=== PATIENT | female | born 1935 | race Caucasian/White ===

== ENCOUNTER 2020-09-25 04:23 | Inpatient (IN) | payer OTHER ==
[~2020-09-25] VITALS: Ht 170.2 cm; Wt 103.0 kg
[2020-09-25] MEDS ORDERED: ACETAMINOPHEN 650 MG RECT SUPP PR ONE ×2 (04:54→05:15)
[2020-09-25] MEDS ORDERED: ACETAMINOPHEN 325 MG TAB PO ONE (05:00)
[2020-09-25 05:47] LABS: Urine Bacteria MANY /hpf (None Seen); Urine Blood 2+ /uL (Negative); Urine Budding Yeast MANY /hpf (None Seen); Urine WBC 321 /hpf (0 - 5); Urine WBC Clumps PRESENT /hpf (None Seen)
[2020-09-25 05:49] LABS: Urine Specific Gravity 1.012 (1.001-1.035)
[2020-09-25 06:02] LABS: Amphetamine Screen, Urine NEGATIVE (NEGATIVE); Barbiturate Scree,Urine NEGATIVE (NEGATIVE); Benzodiazephine Screen, Urine NEGATIVE (NEGATIVE); Cannabinoid Screen, Urine NEGATIVE (NEGATIVE); Cocaine Screen, Urine NEGATIVE (NEGATIVE); Opiate Scree,Urine POSITIVE (NEGATIVE); Phencyclidine Screen, Urine NEGATIVE (NEGATIVE)
[2020-09-25] MEDS ORDERED: VANCOMYCIN 1GM/250ML 250 ML IV ONE (06:30)
[2020-09-25] MEDS ORDERED: PIPERACILLIN-TAZOB 3.375GM 100 ML IV ONE (06:30)
[2020-09-25] MEDS ORDERED: SODIUM CHLORIDE 0.9% 1,000 ML IV ONE (06:30)
[2020-09-25] MEDS ORDERED: FAMOTIDINE (10MG/ML) 2ML VL IV ONE (06:45)
[2020-09-25] MEDS ORDERED: FAMOTIDINE INJECTION 40 MG in SODIUM CHL 0.9% 100 ML IV ONE (06:45)
[2020-09-25 07:17] LABS: Hematocrit 31.9 % (36.0-46.0); Hemoglobin 10.4 g/dL (12.2-16.2); Mean Corpuscular Hemoglobin 28.8 pg (28.0-32.0); Mean Corpuscular Hgb Conc. 32.5 g/dL (32.0-36.0); Mean Corpuscular Volume 88.4 fL (80.0-100.0); Red Cell Distribution Width 16.4 % (11.8-14.3); White Blood Cell 14.7 10^3/uL (4.4-10.8)
[2020-09-25 07:39] LABS: Basophils % (manual) 0 (0.0-2.0); Blast Cells 0; Eosinophils % (manual) 0 (0-7); Myelocytes % 0; Promyelocytes % 0; Reactive Lymphocytes 0
[2020-09-25 07:42] LABS: Chloride 99 mmol/L (98-107); Potassium 4.6 mmol/L (3.5-5.1); Sodium 133 mmol/L (136-145)
[2020-09-25 07:43] LABS: Acetaminophen 5.3 ug/mL (10-30); Salicylate < 1.7 mg/dL (2.8-20.0)
[2020-09-25 07:52] LABS: Alanine Aminotransferase 34 U/L (13-56); Albumin 2.4 g/dL (3.4-5.0); Alkaline Phosphatase 53 U/L (45-117); Anion Gap 7 (5-15); Aspartate Aminotransferase 125 U/L (15-37); BUN/Creatinine Ratio 22.2; Bilirubin, Total 0.8 mg/dL (0.2-1.0); Blood Alcohol < 3.0 mg/dL (0-5); Blood Urea Nitrogen 51 mg/dL (7-18); Calcium 8.2 mg/dL (8.5-10.1); Carbon Dioxide 27 mmol/L (21-32); GFR African American 26 mL/min; GFR Non-African American 21 mL/min; Glucose 179 mg/dL (74-106); Total Protein 6.6 g/dL (6.4-8.2)
[2020-09-25 08:17] LABS: Band Neutrophils % (manual) 16; Lymphocytes % (manual) 4 (10.0-50.0); Metamyelocytes % 1; Monocytes % (manual) 10 (0-12)
[2020-09-25 10:51] LABS: INR 1.02 (0.9-1.15); Partial Thromboplastin Time 28.8 sec (23.0-31.2)
[2020-09-25] MEDS ORDERED: MORPHINE SULFATE INJECTION 2 MG/ML SYRG IV PRN (13:15)
[2020-09-25] MEDS ORDERED: ACETAMINOPHEN 500 MG TAB PO PRN (13:15)
[2020-09-25] MEDS ORDERED: NITROGLYCERIN 0.4 MG SL TAB SL PRN (13:15)
[2020-09-25] MEDS ORDERED: FOLIC ACID 1 MG, MULTIPLE VITAMIN 10 ML, MAGNESIUM SULF SDV 50% 8 MEQ, THIAMINE INJ 100... INJ SCH ×5 (13:15)
[2020-09-25 14:25] LABS: Lactate Dehydrogenase 441 U/L (84-246)
[2020-09-25 14:30] LABS: CRP High Sensitivity > 19.0 mg/dL (< 0.3)
[2020-09-25] MEDS: CHOLECALCIFEROL (VITD3) 2,000 UNIT CAP/TAB PO SCH (14:37)
[2020-09-25] MEDS: SODIUM CHLORIDE 0.9% 1,000 ML IV SCH ×2 (14:37→23:15)
[2020-09-25] MEDS: metroNIDAZOLE 500MG/100ML 100 ML IV SCH ×2 (14:37→21:51)
[2020-09-25] MEDS: ASCORBIC ACID 1,000 MG TAB PO SCH (14:37)
[2020-09-25] MEDS: ENOXAPARIN SOD 40 MG/0.4 ML SYRINGE SC SCH (14:37)
[2020-09-25] MEDS: PIPERACILLIN-TAZOB 2.25GM 50 ML IV SCH ×2 (17:31→21:51)
[2020-09-25] MEDS: BUDESONIDE (INHALATION) 180 MCG IH IN SCH (20:52)
[2020-09-25] MEDS: ALBUTEROL SULF HFA 90MCG INH 200DOSE IN PRN (20:53)
[2020-09-26] MEDS: PIPERACILLIN-TAZOB 2.25GM 50 ML IV SCH ×4 (04:32→22:00)
[2020-09-26] MEDS: metroNIDAZOLE 500MG/100ML 100 ML IV SCH ×3 (05:35→22:00)
[2020-09-26] MEDS: ALBUTEROL SULF HFA 90MCG INH 200DOSE IN PRN ×2 (06:48→19:52)
[2020-09-26] MEDS: BUDESONIDE (INHALATION) 180 MCG IH IN SCH ×3 (06:48→18:41)
[2020-09-26 08:53] LABS: Basophils # (auto) 0 10 ^3/uL (0-0.2); Basophils % (auto) 0.2 % (0.0-2.0); Eosinophils # (auto) 0 10 ^3/uL (0-0.8); Eosinophils % (auto) 0.1 % (0.0-7.0); Hematocrit 34.8 % (36.0-46.0); Hemoglobin 11.1 g/dL (12.2-16.2); Lymphocytes % (auto) 6.6 % (10.0-50.0); Mean Corpuscular Hemoglobin 28.1 pg (28.0-32.0); Mean Corpuscular Hgb Conc. 31.9 g/dL (32.0-36.0); Mean Corpuscular Volume 87.9 fL (80.0-100.0); Monocytes # (auto) 1.3 10 ^3/uL (0-1.3); Monocytes % (auto) 8.8 % (0.0-12.0); Neutrophils # (auto) 12.3 10 ^3/uL (1.6-8.6); Neutrophils % (auto) 84.3 % (37.0-80.0); Red Blood Cells 3.96 10^6/uL (4.0-5.20); Red Cell Distribution Width 16.3 % (11.8-14.3); White Blood Cell 14.6 10^3/uL (4.4-10.8)
[2020-09-26 09:12] LABS: Potassium 4.6 mmol/L (3.5-5.1)
[2020-09-26 09:29] LABS: BUN/Creatinine Ratio 20.7; Magnesium 1.3 mg/dL (1.6-2.6)
[2020-09-26] MEDS: SODIUM CHLORIDE 0.9% 1,000 ML IV SCH ×2 (09:38→19:59)
[2020-09-26] MEDS: ENOXAPARIN SOD 40 MG/0.4 ML SYRINGE SC SCH (09:39)
[2020-09-26] MEDS: ASCORBIC ACID 1,000 MG TAB PO SCH (09:39)
[2020-09-26] MEDS: CHOLECALCIFEROL (VITD3) 2,000 UNIT CAP/TAB PO SCH (09:39)
[2020-09-26 11:05] LABS: Calcium 8.5 mg/dL (8.5-10.1)
[2020-09-26] MEDS: MULTIPLE VITAMIN TAB PO SCH (13:40)
[2020-09-26] MEDS: THIAMINE HCL 100 MG TAB PO SCH (13:40)
[2020-09-26] MEDS ORDERED: DexAMETHasone SOD PHOS 10MG/1ML VIAL INJ IV ONE (14:15)
[2020-09-26] MEDS: MAGNESIUM SULFATE 1GM/100ML 100 ML IV SCH ×4 (15:07→18:52)
[2020-09-26] MEDS ORDERED: DIPHENOXYLATE W/ATROPINE 2.5 MG TAB PO ONE (16:45)
[2020-09-26] MEDS ORDERED: TEMAZEPAM 15 MG CAP PO ONE (20:45)
[2020-09-26] MEDS: HYDROcodone-ACET 5/325MG TAB PO PRN (20:54)
[2020-09-26] MEDS: FAMOTIDINE (10MG/ML) 2ML VL IV SCH (22:00)
[2020-09-26 22:50] VITALS: BP 130/57
[2020-09-27] VITALS: BP 130/57
[2020-09-27] MEDS: PIPERACILLIN-TAZOB 2.25GM 50 ML IV SCH ×4 (03:51→21:13)
[2020-09-27] MEDS: SODIUM CHLORIDE 0.9% 1,000 ML IV SCH (05:58)
[2020-09-27] MEDS: metroNIDAZOLE 500MG/100ML 100 ML IV SCH (06:27)
[2020-09-27 08:00] VITALS: BP 128/45
[2020-09-27 08:15] LABS: Basophils # (auto) 0.1 10 ^3/uL (0-0.2); Basophils % (auto) 0.6 % (0.0-2.0); Eosinophils # (auto) 0 10 ^3/uL (0-0.8); Hematocrit 36.6 % (36.0-46.0); Hemoglobin 11.7 g/dL (12.2-16.2); Lymphocytes # (auto) 0.7 10 ^3/uL (0.4-5.4); Lymphocytes % (auto) 4.7 % (10.0-50.0); Mean Corpuscular Hgb Conc. 31.9 g/dL (32.0-36.0); Mean Corpuscular Volume 87.9 fL (80.0-100.0); Monocytes # (auto) 0.4 10 ^3/uL (0-1.3); Monocytes % (auto) 2.8 % (0.0-12.0); Neutrophils # (auto) 14.1 10 ^3/uL (1.6-8.6); Neutrophils % (auto) 91.9 % (37.0-80.0); Nucleated Red Blood Cells % 0.1 %; Red Blood Cells 4.17 10^6/uL (4.0-5.20); Red Cell Distribution Width 16.3 % (11.8-14.3); White Blood Cell 15.3 10^3/uL (4.4-10.8)
[2020-09-27] MEDS: ALBUTEROL SULF HFA 90MCG INH 200DOSE IN PRN ×2 (08:35→23:24)
[2020-09-27 08:39] LABS: Chloride 100 mmol/L (98-107); Potassium 4.7 mmol/L (3.5-5.1); Sodium 133 mmol/L (136-145)
[2020-09-27 08:58] LABS: Alanine Aminotransferase 37 U/L (13-56); Albumin 2.5 g/dL (3.4-5.0); Alkaline Phosphatase 69 U/L (45-117); Anion Gap 10 (5-15); Aspartate Aminotransferase 38 U/L (15-37); BUN/Creatinine Ratio 29.5; Bilirubin, Total 0.7 mg/dL (0.2-1.0); Blood Urea Nitrogen 38 mg/dL (7-18); Carbon Dioxide 23 mmol/L (21-32); GFR African American 50 mL/min; GFR Non-African American 42 mL/min; Glucose 302 mg/dL (74-106); Magnesium 3.6 mg/dL (1.6-2.6); Total Protein 7.3 g/dL (6.4-8.2)
[2020-09-27 09:22] LABS: CRP High Sensitivity > 19.0 mg/dL (< 0.3)
[2020-09-27] MEDS: CHOLECALCIFEROL (VITD3) 2,000 UNIT CAP/TAB PO SCH (09:34)
[2020-09-27] MEDS: ENOXAPARIN SOD 40 MG/0.4 ML SYRINGE SC SCH (09:34)
[2020-09-27] MEDS: FAMOTIDINE (10MG/ML) 2ML VL IV SCH (09:34)
[2020-09-27] MEDS: BUDESONIDE (INHALATION) 180 MCG IH IN SCH ×2 (09:35→23:24)
[2020-09-27] MEDS: ASCORBIC ACID 1,000 MG TAB PO SCH (09:35)
[2020-09-27] MEDS: THIAMINE HCL 100 MG TAB PO SCH (09:35)
[2020-09-27] MEDS: MULTIPLE VITAMIN TAB PO SCH (09:35)
[2020-09-27] MEDS: DexAMETHasone SOD PHOS 10MG/1ML VIAL INJ IV SCH (09:35)
[2020-09-27 16:00] VITALS: BP 131/92
[2020-09-27] MEDS: LORazepam 0.5 MG TAB PO PRN (16:30)
[2020-09-27] MEDS: InsuLIN REG 1unit/0.01ml Soln (100units/ml) SC SCH ×3 (17:00→21:03)
[2020-09-27] MEDS: ACCU-CHEK COMFORT CURVE STRIP VI SCH ×2 (17:30→21:12)
[2020-09-27] MEDS ORDERED: DEXTROSE (50%) 50ML SYRG IV PRN (18:30)
[2020-09-27] MEDS: MUPIROCIN 2% OINT 15gm or 22gm EACHNOSTRI SCH (21:10)
[2020-09-27] MEDS: INSULIN LANTUS (GLARGINE) 1 /0.01ml (100units/ml) SC SCH (21:16)
[2020-09-27] MEDS: HYDROcodone-ACET 5/325MG TAB PO PRN (21:23)
[2020-09-28] VITALS: BP 149/55
[2020-09-28] MEDS: PIPERACILLIN-TAZOB 2.25GM 50 ML IV SCH ×2 (03:58→10:06)
[2020-09-28] MEDS: InsuLIN REG 1unit/0.01ml Soln (100units/ml) SC SCH ×4 (05:33→22:03)
[2020-09-28] MEDS: ACCU-CHEK COMFORT CURVE STRIP VI SCH ×4 (05:36→22:04)
[2020-09-28 06:43] LABS: Basophils # (auto) 0.1 10 ^3/uL (0-0.2); Basophils % (auto) 0.4 % (0.0-2.0); Eosinophils # (auto) 0 10 ^3/uL (0-0.8); Hematocrit 35.9 % (36.0-46.0); Hemoglobin 11.7 g/dL (12.2-16.2); Lymphocytes # (auto) 0.8 10 ^3/uL (0.4-5.4); Lymphocytes % (auto) 6.7 % (10.0-50.0); Mean Corpuscular Hemoglobin 27.9 pg (28.0-32.0); Mean Corpuscular Hgb Conc. 32.5 g/dL (32.0-36.0); Mean Corpuscular Volume 85.9 fL (80.0-100.0); Monocytes # (auto) 0.5 10 ^3/uL (0-1.3); Monocytes % (auto) 4.2 % (0.0-12.0); Neutrophils # (auto) 10.3 10 ^3/uL (1.6-8.6); Neutrophils % (auto) 88.7 % (37.0-80.0); Nucleated Red Blood Cells % 0.1 %; Red Blood Cells 4.18 10^6/uL (4.0-5.20); Red Cell Distribution Width 16.1 % (11.8-14.3); White Blood Cell 11.6 10^3/uL (4.4-10.8)
[2020-09-28 07:05] LABS: BUN/Creatinine Ratio 35.3; Calcium 8.8 mg/dL (8.5-10.1); Potassium 4.5 mmol/L (3.5-5.1)
[2020-09-28 08:00] VITALS: BP 133/64
[2020-09-28] MEDS: BUDESONIDE (INHALATION) 180 MCG IH IN SCH ×2 (08:53→19:36)
[2020-09-28] MEDS: ALBUTEROL SULF HFA 90MCG INH 200DOSE IN PRN ×2 (08:54→19:36)
[2020-09-28] MEDS: FAMOTIDINE (10MG/ML) 2ML VL IV SCH (10:00)
[2020-09-28] MEDS: MULTIPLE VITAMIN TAB PO SCH (10:06)
[2020-09-28] MEDS: CHOLECALCIFEROL (VITD3) 2,000 UNIT CAP/TAB PO SCH (10:06)
[2020-09-28] MEDS: MUPIROCIN 2% OINT 15gm or 22gm EACHNOSTRI SCH ×2 (10:06→22:05)
[2020-09-28] MEDS: THIAMINE HCL 100 MG TAB PO SCH (10:06)
[2020-09-28] MEDS: ASCORBIC ACID 1,000 MG TAB PO SCH (10:06)
[2020-09-28] MEDS: DexAMETHasone SOD PHOS 10MG/1ML VIAL INJ IV SCH (10:06)
[2020-09-28] MEDS: ENOXAPARIN SOD 40 MG/0.4 ML SYRINGE SC SCH ×2 (10:07→22:04)
[2020-09-28] MEDS ORDERED: REMDESIVIR PER PHARMACY 0 ML IV SCH (12:15)
[2020-09-28] MEDS ORDERED: ERTAPENEM SOD INJ 1 GM in SODIUM CHL 0.9% 50 ML IV ONE (12:30)
[2020-09-28] MEDS ORDERED: REMDESIVIR 200 MG in NS 210ml LOADING DOSE ADULT IV ONE (15:00)
[2020-09-28 15:31] VITALS: BP 148/79
[2020-09-28] MEDS: LORazepam 0.5 MG TAB PO PRN (15:49)
[2020-09-28] MEDS ORDERED: TRAZ50TA2 PO (17:41)
[2020-09-28] MEDS ORDERED: POTA1TAB4 PO (17:41)
[2020-09-28] MEDS ORDERED: LORA0.5T19 PO (17:41)
[2020-09-28] MEDS ORDERED: GLIM4TAB42 PO (17:41)
[2020-09-28] MEDS ORDERED: ALBU108A5 INH (17:41)
[2020-09-28] MEDS ORDERED: AMLO-496 PO (17:41)
[2020-09-28] MEDS ORDERED: AMIO200T4 PO (17:41)
[2020-09-28] MEDS ORDERED: FLUT50SP NAS (17:41)
[2020-09-28] MEDS ORDERED: CANA300T PO (17:41)
[2020-09-28] MEDS ORDERED: FURO40TA4 PO (17:41)
[2020-09-28] MEDS ORDERED: GABA300C10 PO (17:41)
[2020-09-28] MEDS ORDERED: METO-158 PO (17:42)
[2020-09-28] MEDS ORDERED: ASPI-231 PO (17:43)
[2020-09-28] MEDS ORDERED: ENAL2.5T7 PO (17:43)
[2020-09-28] MEDS: INSULIN LANTUS (GLARGINE) 1 /0.01ml (100units/ml) SC SCH (22:04)
[2020-09-29] VITALS: BP 130/68
[2020-09-29] MEDS: HYDROcodone-ACET 5/325MG TAB PO PRN ×2 (00:11→12:41)
[2020-09-29] MEDS: InsuLIN REG 1unit/0.01ml Soln (100units/ml) SC SCH ×4 (05:46→21:19)
[2020-09-29] MEDS: ACCU-CHEK COMFORT CURVE STRIP VI SCH ×4 (05:47→21:09)
[2020-09-29 08:00] VITALS: BP 142/68
[2020-09-29 08:10] LABS: Basophils # (auto) 0 10 ^3/uL (0-0.2); Basophils % (auto) 0.1 % (0.0-2.0); Eosinophils # (auto) 0 10 ^3/uL (0-0.8); Neutrophils # (auto) 11.5 10 ^3/uL (1.6-8.6)
[2020-09-29 08:14] LABS: Hematocrit 36.1 % (36.0-46.0); Lymphocytes # (auto) 1.2 10 ^3/uL (0.4-5.4); Lymphocytes % (auto) 8.9 % (10.0-50.0); Mean Corpuscular Hemoglobin 28.4 pg (28.0-32.0); Mean Corpuscular Hgb Conc. 33.1 g/dL (32.0-36.0); Mean Corpuscular Volume 85.5 fL (80.0-100.0); Red Blood Cells 4.22 10^6/uL (4.0-5.20); Red Cell Distribution Width 16.2 % (11.8-14.3); White Blood Cell 13.6 10^3/uL (4.4-10.8)
[2020-09-29 08:17] LABS: Albumin 2.3 g/dL (3.4-5.0); Calcium 8.4 mg/dL (8.5-10.1); Potassium 4.4 mmol/L (3.5-5.1)
[2020-09-29 08:22] LABS: BUN/Creatinine Ratio 35.2; Bilirubin, Total 0.4 mg/dL (0.2-1.0); Total Protein 6.4 g/dL (6.4-8.2)
[2020-09-29] MEDS: BUDESONIDE (INHALATION) 180 MCG IH IN SCH ×2 (10:04→19:51)
[2020-09-29] MEDS: MUPIROCIN 2% OINT 15gm or 22gm EACHNOSTRI SCH ×2 (10:26→21:09)
[2020-09-29] MEDS: FAMOTIDINE (10MG/ML) 2ML VL IV SCH (10:26)
[2020-09-29] MEDS: ERTAPENEM SOD INJ 1 GM in SODIUM CHL 0.9% 50 ML IV SCH (10:26)
[2020-09-29] MEDS: DexAMETHasone SOD PHOS 10MG/1ML VIAL INJ IV SCH (10:26)
[2020-09-29] MEDS: MULTIPLE VITAMIN TAB PO SCH (10:27)
[2020-09-29] MEDS: ENOXAPARIN SOD 40 MG/0.4 ML SYRINGE SC SCH ×2 (10:27→21:08)
[2020-09-29] MEDS: ASCORBIC ACID 1,000 MG TAB PO SCH (10:27)
[2020-09-29] MEDS: THIAMINE HCL 100 MG TAB PO SCH (10:27)
[2020-09-29] MEDS: CHOLECALCIFEROL (VITD3) 2,000 UNIT CAP/TAB PO SCH (10:27)
[2020-09-29] MEDS: REMDESIVIR 100mg 100 MG in SODIUM CHL 0.9% 230 ML IV SCH (15:36)
[2020-09-29 16:02] VITALS: BP 146/59
[2020-09-29] MEDS: ALBUTEROL SULF HFA 90MCG INH 200DOSE IN PRN (19:51)
[2020-09-29] MEDS: LORazepam 0.5 MG TAB PO PRN (21:08)
[2020-09-29] MEDS: INSULIN LANTUS (GLARGINE) 1 /0.01ml (100units/ml) SC SCH (21:19)
[2020-09-30] VITALS: BP 143/54
[2020-09-30 06:21] LABS: Basophils # (auto) 0.1 10 ^3/uL (0-0.2); Basophils % (auto) 0.4 % (0.0-2.0); Eosinophils # (auto) 0 10 ^3/uL (0-0.8); Eosinophils % (auto) 0.1 % (0.0-7.0); Hematocrit 37.3 % (36.0-46.0); Hemoglobin 12.2 g/dL (12.2-16.2); Lymphocytes # (auto) 1.1 10 ^3/uL (0.4-5.4); Lymphocytes % (auto) 8.4 % (10.0-50.0); Mean Corpuscular Hemoglobin 27.9 pg (28.0-32.0); Mean Corpuscular Hgb Conc. 32.6 g/dL (32.0-36.0); Mean Corpuscular Volume 85.8 fL (80.0-100.0); Monocytes # (auto) 0.8 10 ^3/uL (0-1.3); Monocytes % (auto) 6.7 % (0.0-12.0); Neutrophils # (auto) 10.6 10 ^3/uL (1.6-8.6); Neutrophils % (auto) 84.4 % (37.0-80.0); Red Blood Cells 4.35 10^6/uL (4.0-5.20); Red Cell Distribution Width 16.1 % (11.8-14.3); White Blood Cell 12.6 10^3/uL (4.4-10.8)
[2020-09-30] MEDS: ACCU-CHEK COMFORT CURVE STRIP VI SCH ×4 (06:25→21:40)
[2020-09-30] MEDS: InsuLIN REG 1unit/0.01ml Soln (100units/ml) SC SCH ×4 (06:27→21:34)
[2020-09-30 06:43] LABS: Albumin 2.4 g/dL (3.4-5.0); BUN/Creatinine Ratio 36.6; Calcium 8.4 mg/dL (8.5-10.1); Potassium 4.4 mmol/L (3.5-5.1)
[2020-09-30] MEDS: BUDESONIDE (INHALATION) 180 MCG IH IN SCH ×2 (06:57→19:46)
[2020-09-30 07:22] LABS: Bilirubin, Total 0.4 mg/dL (0.2-1.0); CRP High Sensitivity 2.79 mg/dL (< 0.3); Total Protein 6.4 g/dL (6.4-8.2)
[2020-09-30 08:00] VITALS: BP 129/63
[2020-09-30] MEDS: ENOXAPARIN SOD 40 MG/0.4 ML SYRINGE SC SCH ×2 (09:30→21:34)
[2020-09-30] MEDS: ERTAPENEM SOD INJ 1 GM in SODIUM CHL 0.9% 50 ML IV SCH (09:30)
[2020-09-30] MEDS: ASCORBIC ACID 1,000 MG TAB PO SCH (09:31)
[2020-09-30] MEDS: FAMOTIDINE (10MG/ML) 2ML VL IV SCH (09:31)
[2020-09-30] MEDS: CHOLECALCIFEROL (VITD3) 2,000 UNIT CAP/TAB PO SCH (09:31)
[2020-09-30] MEDS: THIAMINE HCL 100 MG TAB PO SCH (09:31)
[2020-09-30] MEDS: MUPIROCIN 2% OINT 15gm or 22gm EACHNOSTRI SCH ×2 (09:32→21:38)
[2020-09-30] MEDS: DexAMETHasone SOD PHOS 10MG/1ML VIAL INJ IV SCH (09:32)
[2020-09-30] MEDS: MULTIPLE VITAMIN TAB PO SCH (09:32)
[2020-09-30] MEDS: LORazepam 0.5 MG TAB PO PRN ×2 (09:32→21:35)
[2020-09-30] MEDS: REMDESIVIR 100mg 100 MG in SODIUM CHL 0.9% 230 ML IV SCH (14:51)
[2020-09-30 16:00] VITALS: BP_SYST 128; BP_SYST 156; BP_DIAS 55; BP_DIAS 58
[2020-09-30] MEDS: ALBUTEROL SULF HFA 90MCG INH 200DOSE IN PRN (19:46)
[2020-09-30] MEDS: HYDROcodone-ACET 5/325MG TAB PO PRN (20:17)
[2020-09-30] MEDS: INSULIN LANTUS (GLARGINE) 1 /0.01ml (100units/ml) SC SCH (21:34)
[2020-10-01] VITALS: BP 151/65
[2020-10-01] MEDS: HYDROcodone-ACET 5/325MG TAB PO PRN (00:22)
[2020-10-01] MEDS: ACCU-CHEK COMFORT CURVE STRIP VI SCH ×4 (06:27→21:31)
[2020-10-01] MEDS: InsuLIN REG 1unit/0.01ml Soln (100units/ml) SC SCH ×5 (06:27→21:30)
[2020-10-01 06:48] LABS: Basophils # (auto) 0.1 10 ^3/uL (0-0.2); Basophils % (auto) 0.7 % (0.0-2.0); Eosinophils # (auto) 0 10 ^3/uL (0-0.8); Eosinophils % (auto) 0.1 % (0.0-7.0); Hematocrit 36.4 % (36.0-46.0); Hemoglobin 11.9 g/dL (12.2-16.2); Lymphocytes % (auto) 8.9 % (10.0-50.0); Mean Corpuscular Hemoglobin 28.1 pg (28.0-32.0); Mean Corpuscular Hgb Conc. 32.8 g/dL (32.0-36.0); Mean Corpuscular Volume 85.8 fL (80.0-100.0); Monocytes # (auto) 0.6 10 ^3/uL (0-1.3); Monocytes % (auto) 5.2 % (0.0-12.0); Neutrophils # (auto) 9.9 10 ^3/uL (1.6-8.6); Neutrophils % (auto) 85.1 % (37.0-80.0); Red Blood Cells 4.24 10^6/uL (4.0-5.20); Red Cell Distribution Width 16.3 % (11.8-14.3); White Blood Cell 11.6 10^3/uL (4.4-10.8)
[2020-10-01 07:07] LABS: Calcium 8.3 mg/dL (8.5-10.1); Potassium 4.6 mmol/L (3.5-5.1)
[2020-10-01 08:00] VITALS: BP 150/64
[2020-10-01] MEDS: ALBUTEROL SULF HFA 90MCG INH 200DOSE IN PRN ×2 (09:30→20:29)
[2020-10-01] MEDS: BUDESONIDE (INHALATION) 180 MCG IH IN SCH ×2 (09:30→20:29)
[2020-10-01] MEDS: CHOLECALCIFEROL (VITD3) 2,000 UNIT CAP/TAB PO SCH (09:33)
[2020-10-01] MEDS: ENOXAPARIN SOD 40 MG/0.4 ML SYRINGE SC SCH ×2 (09:33→21:31)
[2020-10-01] MEDS: FAMOTIDINE (10MG/ML) 2ML VL IV SCH (09:33)
[2020-10-01] MEDS: DexAMETHasone SOD PHOS 10MG/1ML VIAL INJ IV SCH (09:33)
[2020-10-01] MEDS: ERTAPENEM SOD INJ 1 GM in SODIUM CHL 0.9% 50 ML IV SCH (09:33)
[2020-10-01] MEDS: LORazepam 0.5 MG TAB PO PRN ×2 (09:33→21:31)
[2020-10-01] MEDS: ASCORBIC ACID 1,000 MG TAB PO SCH (09:33)
[2020-10-01] MEDS: MULTIPLE VITAMIN TAB PO SCH (09:34)
[2020-10-01] MEDS: MUPIROCIN 2% OINT 15gm or 22gm EACHNOSTRI SCH ×2 (09:34→21:28)
[2020-10-01] MEDS: THIAMINE HCL 100 MG TAB PO SCH (09:34)
[2020-10-01] MEDS ORDERED: INSULIN LANTUS (GLARGINE) 1 /0.01ml (100units/ml) SC SCH (11:00)
[2020-10-01] MEDS: REMDESIVIR 100mg 100 MG in SODIUM CHL 0.9% 230 ML IV SCH (15:42)
[2020-10-01 16:00] VITALS: BP 151/69
[2020-10-01] MEDS: INSULIN LANTUS (GLARGINE) 1 /0.01ml (100units/ml) SC SCH (21:29)
[2020-10-02] VITALS: BP 133/64
[2020-10-02] MEDS: BUDESONIDE (INHALATION) 180 MCG IH IN SCH ×2 (06:00→18:05)
[2020-10-02] MEDS: ALBUTEROL SULF HFA 90MCG INH 200DOSE IN PRN ×2 (06:00→18:05)
[2020-10-02] MEDS: InsuLIN REG 1unit/0.01ml Soln (100units/ml) SC SCH ×6 (07:00→22:23)
[2020-10-02] MEDS: ACCU-CHEK COMFORT CURVE STRIP VI SCH ×4 (07:09→22:18)
[2020-10-02 07:46] LABS: Basophils # (auto) 0 10 ^3/uL (0-0.2); Basophils % (auto) 0.3 % (0.0-2.0); Eosinophils # (auto) 0 10 ^3/uL (0-0.8); Eosinophils % (auto) 0.2 % (0.0-7.0); Hematocrit 36.3 % (36.0-46.0); Lymphocytes # (auto) 1.2 10 ^3/uL (0.4-5.4); Lymphocytes % (auto) 10.4 % (10.0-50.0); Mean Corpuscular Hemoglobin 28.1 pg (28.0-32.0); Mean Corpuscular Volume 85.3 fL (80.0-100.0); Monocytes # (auto) 0.6 10 ^3/uL (0-1.3); Monocytes % (auto) 5.2 % (0.0-12.0); Neutrophils # (auto) 9.4 10 ^3/uL (1.6-8.6); Neutrophils % (auto) 83.9 % (37.0-80.0); Red Blood Cells 4.25 10^6/uL (4.0-5.20); Red Cell Distribution Width 16.3 % (11.8-14.3); White Blood Cell 11.2 10^3/uL (4.4-10.8)
[2020-10-02 08:00] VITALS: BP 144/83
[2020-10-02 08:28] LABS: BUN/Creatinine Ratio 34.9; Calcium 8.4 mg/dL (8.5-10.1); Potassium 4.5 mmol/L (3.5-5.1)
[2020-10-02] MEDS: MULTIPLE VITAMIN TAB PO SCH (09:42)
[2020-10-02] MEDS: ASCORBIC ACID 1,000 MG TAB PO SCH (09:42)
[2020-10-02] MEDS: FAMOTIDINE (10MG/ML) 2ML VL IV SCH (09:42)
[2020-10-02] MEDS: DexAMETHasone SOD PHOS 10MG/1ML VIAL INJ IV SCH (09:42)
[2020-10-02] MEDS: LORazepam 0.5 MG TAB PO PRN (09:42)
[2020-10-02] MEDS: ERTAPENEM SOD INJ 1 GM in SODIUM CHL 0.9% 50 ML IV SCH (09:43)
[2020-10-02] MEDS: CHOLECALCIFEROL (VITD3) 2,000 UNIT CAP/TAB PO SCH (09:43)
[2020-10-02] MEDS: ENOXAPARIN SOD 40 MG/0.4 ML SYRINGE SC SCH (09:43)
[2020-10-02] MEDS: THIAMINE HCL 100 MG TAB PO SCH (09:43)
[2020-10-02] MEDS: MUPIROCIN 2% OINT 15gm or 22gm EACHNOSTRI SCH (09:54)
[2020-10-02] MEDS: INSULIN LANTUS (GLARGINE) 1 /0.01ml (100units/ml) SC SCH ×2 (09:58→22:22)
[2020-10-02] MEDS: HYDROcodone-ACET 5/325MG TAB PO PRN ×2 (12:37→17:24)
[2020-10-02] MEDS ORDERED: CANA300T OR (15:00)
[2020-10-02] MEDS ORDERED: AMIO200T33 PO (15:00)
[2020-10-02] MEDS ORDERED: FURO40TA4 PO (15:00)
[2020-10-02] MEDS ORDERED: HYDR-4833 PO (15:00)
[2020-10-02] MEDS ORDERED: POTA10TA51 PO (15:00)
[2020-10-02] MEDS ORDERED: INSU300I SC (15:00)
[2020-10-02] MEDS ORDERED: ALBU108A5 IN (15:00)
[2020-10-02] MEDS ORDERED: LORA-655 PO (15:00)
[2020-10-02] MEDS: REMDESIVIR 100mg 100 MG in SODIUM CHL 0.9% 230 ML IV SCH (15:48)
[2020-10-02 16:00] VITALS: BP 144/79
[2020-10-02] MEDS ORDERED: INSULIN LANTUS (GLARGINE) 1 /0.01ml (100units/ml) SC ONE (18:15)
[2020-10-02] MEDS: FOLIC ACID 1 MG TAB PO SCH (20:05)
[2020-10-02 23:56] VITALS: BP 134/76
[2020-10-03] MEDS: ACCU-CHEK COMFORT CURVE STRIP VI SCH ×4 (06:50→22:29)
[2020-10-03] MEDS: InsuLIN REG 1unit/0.01ml Soln (100units/ml) SC SCH ×4 (06:53→22:31)
[2020-10-03 08:00] VITALS: BP 158/74
[2020-10-03 08:01] LABS: Basophils # (auto) 0 10 ^3/uL (0-0.2); Basophils % (auto) 0.2 % (0.0-2.0); Eosinophils # (auto) 0 10 ^3/uL (0-0.8); Eosinophils % (auto) 0.4 % (0.0-7.0); Hemoglobin 12.1 g/dL (12.2-16.2); Lymphocytes # (auto) 1.1 10 ^3/uL (0.4-5.4); Lymphocytes % (auto) 10.8 % (10.0-50.0); Mean Corpuscular Hemoglobin 28.3 pg (28.0-32.0); Mean Corpuscular Hgb Conc. 32.8 g/dL (32.0-36.0); Mean Corpuscular Volume 86.1 fL (80.0-100.0); Monocytes # (auto) 0.5 10 ^3/uL (0-1.3); Monocytes % (auto) 5.6 % (0.0-12.0); Neutrophils # (auto) 8.1 10 ^3/uL (1.6-8.6); Nucleated Red Blood Cells % 0.1 %; Red Cell Distribution Width 16.1 % (11.8-14.3); White Blood Cell 9.8 10^3/uL (4.4-10.8)
[2020-10-03 08:25] LABS: Potassium 4.3 mmol/L (3.5-5.1)
[2020-10-03 08:31] LABS: BUN/Creatinine Ratio 38.9; Calcium 8.5 mg/dL (8.5-10.1)
[2020-10-03] MEDS: BUDESONIDE (INHALATION) 180 MCG IH IN SCH ×2 (10:00→19:08)
[2020-10-03] MEDS: FAMOTIDINE (10MG/ML) 2ML VL IV SCH (10:19)
[2020-10-03] MEDS: ENOXAPARIN SOD 40 MG/0.4 ML SYRINGE SC SCH (10:19)
[2020-10-03] MEDS: DexAMETHasone SOD PHOS 10MG/1ML VIAL INJ IV SCH (10:19)
[2020-10-03] MEDS: ERTAPENEM SOD INJ 1 GM in SODIUM CHL 0.9% 50 ML IV SCH (10:19)
[2020-10-03] MEDS: HYDROcodone-ACET 5/325MG TAB PO PRN ×2 (10:20→23:27)
[2020-10-03] MEDS: MULTIPLE VITAMIN TAB PO SCH (10:20)
[2020-10-03] MEDS: ASCORBIC ACID 1,000 MG TAB PO SCH (10:20)
[2020-10-03] MEDS: CHOLECALCIFEROL (VITD3) 2,000 UNIT CAP/TAB PO SCH (10:28)
[2020-10-03] MEDS: FOLIC ACID 1 MG TAB PO SCH (10:29)
[2020-10-03] MEDS: THIAMINE HCL 100 MG TAB PO SCH (10:29)
[2020-10-03] MEDS: INSULIN LANTUS (GLARGINE) 1 /0.01ml (100units/ml) SC SCH ×2 (10:57→22:31)
[2020-10-03 16:00] VITALS: BP 153/54
[2020-10-03] MEDS: ALBUTEROL SULF HFA 90MCG INH 200DOSE IN PRN ×2 (16:09→19:08)
[2020-10-03] MEDS: LORazepam 0.5 MG TAB PO PRN (16:21)
[2020-10-04] VITALS: BP 154/65
[2020-10-04] MEDS: ACCU-CHEK COMFORT CURVE STRIP VI SCH ×2 (06:39→12:37)
[2020-10-04] MEDS: InsuLIN REG 1unit/0.01ml Soln (100units/ml) SC SCH ×2 (06:41→12:48)
[2020-10-04] MEDS: BUDESONIDE (INHALATION) 180 MCG IH IN SCH (07:27)
[2020-10-04] MEDS: ALBUTEROL SULF HFA 90MCG INH 200DOSE IN PRN (07:27)
[2020-10-04 08:00] VITALS: BP 148/74
[2020-10-04] MEDS: ERTAPENEM SOD INJ 1 GM in SODIUM CHL 0.9% 50 ML IV SCH (09:58)
[2020-10-04] MEDS: DexAMETHasone SOD PHOS 10MG/1ML VIAL INJ IV SCH (09:58)
[2020-10-04] MEDS: THIAMINE HCL 100 MG TAB PO SCH (09:59)
[2020-10-04] MEDS: FAMOTIDINE (10MG/ML) 2ML VL IV SCH (09:59)
[2020-10-04] MEDS: MULTIPLE VITAMIN TAB PO SCH (09:59)
[2020-10-04] MEDS: FOLIC ACID 1 MG TAB PO SCH (09:59)
[2020-10-04] MEDS: ENOXAPARIN SOD 40 MG/0.4 ML SYRINGE SC SCH (10:00)
[2020-10-04] MEDS: CHOLECALCIFEROL (VITD3) 2,000 UNIT CAP/TAB PO SCH (10:00)
[2020-10-04] MEDS: ASCORBIC ACID 1,000 MG TAB PO SCH (10:00)
[2020-10-04] MEDS: INSULIN LANTUS (GLARGINE) 1 /0.01ml (100units/ml) SC SCH (10:20)
[2020-10-04] MEDS: LORazepam 0.5 MG TAB PO PRN (13:41)
[2020-10-04 16:00] VITALS: BP 132/68
== END 2020-10-04 16:45 | DRG 871 ==
LOC: EDBD 04:23 → ER 04:23 → TELE 04:24 → TELE-WESTW 09-26 22:15
PROVIDERS: ADMIT Nurse Practitioner Acute Care; ATTEND Hospitalist
PROC: XW033E5 Introduction of Remdesivir Anti-infective into Peripheral Vein, Percutaneous Approach, New Technology Group 5 (ICD-10-PCS; principal; 2020-09-28)
PROC: 05HB33Z Insertion of Infusion Device into Right Basilic Vein, Percutaneous Approach (ICD-10-PCS; 2020-09-30)
PROC: B54MZZA Ultrasonography of Right Upper Extremity Veins, Guidance (ICD-10-PCS; 2020-09-30)
DX: A41.51 Sepsis due to Escherichia coli [E. coli] (principal); U07.1 COVID-19; G93.41 Metabolic encephalopathy; J12.82 Pneumonia due to coronavirus disease 2019; I21.4 Non-ST elevation (NSTEMI) myocardial infarction; N17.0 Acute kidney failure with tubular necrosis; J96.21 Acute and chronic respiratory failure with hypoxia; K92.2 Gastrointestinal hemorrhage, unspecified; J44.0 Chronic obstructive pulmonary disease with (acute) lower respiratory infection; N39.0 Urinary tract infection, site not specified; N18.4 Chronic kidney disease, stage 4 (severe); F10.129 Alcohol abuse with intoxication, unspecified; E11.22 Type 2 diabetes mellitus with diabetic chronic kidney disease; I12.9 Hypertensive chronic kidney disease with stage 1 through stage 4 chronic kidney disease, or unspecified chronic kidney disease; K52.9 Noninfective gastroenteritis and colitis, unspecified; E66.01 Morbid (severe) obesity due to excess calories; F41.9 Anxiety disorder, unspecified; H91.90 Unspecified hearing loss, unspecified ear; Z87.891 Personal history of nicotine dependence; I25.2 Old myocardial infarction; Z68.35 Body mass index [BMI] 35.0-35.9, adult; Z75.1 Person awaiting admission to adequate facility elsewhere; Z99.81 Dependence on supplemental oxygen
CPT/HCPCS: 36415; 36600; 51702; 70450; 71045; 71250; 74176; 80048; 80053; 80307; 80320; 80329; 81001; 82140; 82728; 82805; 82962; 83605; 83615; 83735; 83880; 84484; 85007; 85025; 85027; 85379; 85610; 85730; 86141; 87040; 87045; 87077; 87081; 87186; 87426; 87427; 87493; 92610; 93005; 93970; 94640; 96365; 96367; 96368; 96375; 97110; 97116; 97163; 97530; 99291; G0378; J1100; J1335; J1815; J2543; J3490

== ENCOUNTER 2020-12-12 19:23 | Inpatient (IN) | payer OTHER ==
[~2020-12-12] VITALS: Ht 165.1 cm; Wt 106.6 kg
[~2020-12-12 19:23] MED LIST: ALBU108A5 INH; AMIO200T33 PO; AMLO-496 PO; ASPI-231 PO; CANA300T OR; FLUT50SP NAS; FURO40TA4 PO; GABA300C10 PO; GLIM4TAB42 PO; HYDR-4833 PO; INSU300I SC; LORA0.5T19 PO; METO-158 PO; POTA1TAB4 PO; TRAZ50TA2 PO
[2020-12-12 20:22] LABS: Basophils # (auto) 0.1 10 ^3/uL (0-0.2); Eosinophils # (auto) 0.1 10 ^3/uL (0-0.8); Hemoglobin 7.3 g/dL (12.2-16.2); Nucleated Red Blood Cells % 0.1 %; White Blood Cell 11.7 10^3/uL (4.4-10.8)
[2020-12-12 20:24] LABS: Basophils % (auto) 0.7 % (0.0-2.0); Eosinophils % (auto) 0.4 % (0.0-7.0); Hematocrit 23.5 % (36.0-46.0); Lymphocytes % (auto) 16.8 % (10.0-50.0); Mean Corpuscular Hemoglobin 26.6 pg (28.0-32.0); Mean Corpuscular Hgb Conc. 31.2 g/dL (32.0-36.0); Mean Corpuscular Volume 85.3 fL (80.0-100.0); Monocytes # (auto) 0.7 10 ^3/uL (0-1.3); Monocytes % (auto) 5.7 % (0.0-12.0); Neutrophils # (auto) 8.9 10 ^3/uL (1.6-8.6); Neutrophils % (auto) 76.4 % (37.0-80.0); Red Blood Cells 2.75 10^6/uL (4.0-5.20); Red Cell Distribution Width 18.2 % (11.8-14.3)
[2020-12-12 20:40] LABS: Alanine Aminotransferase 15 U/L (13-56); Albumin 2.6 g/dL (3.4-5.0); Anion Gap 9 (5-15); Aspartate Aminotransferase 14 U/L (15-37); BUN/Creatinine Ratio 17.2; Blood Urea Nitrogen 39 mg/dL (7-18); Calcium 8.2 mg/dL (8.5-10.1); Carbon Dioxide 25 mmol/L (21-32); Chloride 101 mmol/L (98-107); GFR African American 26 mL/min; GFR Non-African American 22 mL/min; Glucose 230 mg/dL (74-106); Potassium 5.5 mmol/L (3.5-5.1); Sodium 135 mmol/L (136-145)
[2020-12-12 20:42] LABS: INR 1.01 (0.9-1.15); Partial Thromboplastin Time 27.1 sec (23.0-31.2)
[2020-12-12 20:44] LABS: Alkaline Phosphatase 59 U/L (45-117); Bilirubin, Total 0.3 mg/dL (0.2-1.0)
[2020-12-12 20:49] LABS: Platelet Count (auto) 557 10^3/uL (140-450)
[2020-12-13] MEDS ORDERED: HYDROcodone-ACET 5/325MG TAB PO ONE (03:00)
[2020-12-13] MEDS ORDERED: MORPHINE SULFATE 4 MG/ML SYR/VIAL IV ONE (05:00)
[2020-12-13] MEDS ORDERED: ONDANSETRON HCL 4 MG/2 ML VIAL IV ONE (05:00)
[2020-12-13] MEDS ORDERED: SODIUM CHLORIDE 0.9% 1,000 ML IV SCH ×2 (05:30→06:35)
[2020-12-13] MEDS ORDERED: ONDANSETRON HCL 4 MG/2 ML VIAL IV PRN (05:30)
[2020-12-13] MEDS ORDERED: DEXTROSE (50%) 50ML SYRG IV PRN (05:30)
[2020-12-13] MEDS ORDERED: SODIUM ZIRCONIUM CYCL 10 GM PAK PO ONE (05:30)
[2020-12-13] MEDS ORDERED: SODIUM CHLORIDE 0.9% 1,000 ML IV ONE (05:30)
[2020-12-13] MEDS ORDERED: MORPHINE SULFATE 4 MG/ML SYR/VIAL IV PRN (05:30)
[2020-12-13] MEDS ORDERED: ACETAMINOPHEN 325 MG TAB PO PRN (05:30)
[2020-12-13 06:05] LABS: Urine Bacteria MOD /hpf (None Seen); Urine Blood 1+ /uL (Negative); Urine Hyaline Cast FEW /lpf (0 - 2); Urine Specific Gravity 1.012 (1.001-1.035); Urine WBC 1167 /hpf (0 - 5); Urine WBC Clumps PRESENT /hpf (None Seen)
[2020-12-13] MEDS: ACCU-CHEK COMFORT CURVE STRIP VI SCH ×4 (06:35→22:26)
[2020-12-13] MEDS: InsuLIN REG 1unit/0.01ml Soln (100units/ml) SC SCH ×4 (06:36→22:29)
[2020-12-13] MEDS ORDERED: MECLIZINE HCL 25 MG TAB PO PRN (07:45)
[2020-12-13 08:56] VITALS: BP 120/89
[2020-12-13 09:00] VITALS: BP 120/89
[2020-12-13] MEDS ORDERED: cefTRIAXone 1GM/50ML D5W 50 ML IV SCH (09:00)
[2020-12-13] MEDS: HYDROcodone-ACET 5/325MG TAB PO PRN ×3 (09:40→22:26)
[2020-12-13] MEDS: PANTOPRAZOLE 40 MG TAB PO SCH (09:40)
[2020-12-13 10:45] VITALS: BP 120/89
[2020-12-13 12:02] LABS: Basophils # (auto) 0.1 10 ^3/uL (0-0.2); Basophils % (auto) 0.5 % (0.0-2.0); Eosinophils # (auto) 0 10 ^3/uL (0-0.8); Eosinophils % (auto) 0.2 % (0.0-7.0); Hematocrit 23.9 % (36.0-46.0); Hemoglobin 7.5 g/dL (12.2-16.2); Lymphocytes # (auto) 1.8 10 ^3/uL (0.4-5.4); Lymphocytes % (auto) 13.3 % (10.0-50.0); Mean Corpuscular Hemoglobin 26.2 pg (28.0-32.0); Mean Corpuscular Hgb Conc. 31.2 g/dL (32.0-36.0); Mean Corpuscular Volume 83.8 fL (80.0-100.0); Monocytes # (auto) 0.7 10 ^3/uL (0-1.3); Monocytes % (auto) 5.2 % (0.0-12.0); Neutrophils # (auto) 11.1 10 ^3/uL (1.6-8.6); Neutrophils % (auto) 80.8 % (37.0-80.0); Nucleated Red Blood Cells % 0.2 %; Platelet Count (auto) 575 10^3/uL (140-450); Red Blood Cells 2.86 10^6/uL (4.0-5.20); Red Cell Distribution Width 18.3 % (11.8-14.3); White Blood Cell 13.8 10^3/uL (4.4-10.8)
[2020-12-13] MEDS ORDERED: ERTAPENEM SOD INJ 1 GM in SODIUM CHL 0.9% 50 ML IV SCH (12:45)
[2020-12-13] MEDS: SODIUM CHLORIDE 0.9% 1,000 ML IV SCH ×2 (12:45→22:30)
[2020-12-13 13:00] VITALS: BP 130/43
[2020-12-13] MEDS ORDERED: ERTAPENEM SOD INJ 1 GM in SODIUM CHL 0.9% 50 ML IV ONE (13:00)
[2020-12-13 14:32] LABS: Alcohol, Urine < 3.0 mg/dL (0-10); Amphetamine Screen, Urine NEGATIVE (NEGATIVE); Barbiturate Scree,Urine NEGATIVE (NEGATIVE); Benzodiazephine Screen, Urine NEGATIVE (NEGATIVE); Cannabinoid Screen, Urine NEGATIVE (NEGATIVE); Cocaine Screen, Urine NEGATIVE (NEGATIVE); Creatinine, Urine 18 mg/dL (30.0-125.0); Opiate Scree,Urine NEGATIVE (NEGATIVE); Phencyclidine Screen, Urine NEGATIVE (NEGATIVE)
[2020-12-13 14:43] LABS: BUN/Creatinine Ratio 16.7; Calcium 8.4 mg/dL (8.5-10.1); Potassium 4.5 mmol/L (3.5-5.1)
[2020-12-13 17:00] VITALS: BP 122/59
[2020-12-13 22:58] VITALS: BP 132/55
[2020-12-14] MEDS: HYDROcodone-ACET 5/325MG TAB PO PRN ×2 (02:54→07:05)
[2020-12-14 05:00] VITALS: BP 136/63
[2020-12-14] MEDS: ACCU-CHEK COMFORT CURVE STRIP VI SCH ×3 (06:33→17:00)
[2020-12-14] MEDS: InsuLIN REG 1unit/0.01ml Soln (100units/ml) SC SCH ×3 (06:39→17:00)
[2020-12-14 06:53] LABS: Basophils # (auto) 0.1 10 ^3/uL (0-0.2); Basophils % (auto) 0.8 % (0.0-2.0); Eosinophils # (auto) 0.2 10 ^3/uL (0-0.8); Hematocrit 24.3 % (36.0-46.0); Lymphocytes # (auto) 2.1 10 ^3/uL (0.4-5.4); Monocytes # (auto) 0.9 10 ^3/uL (0-1.3); Monocytes % (auto) 7.9 % (0.0-12.0); Neutrophils # (auto) 7.8 10 ^3/uL (1.6-8.6); Nucleated Red Blood Cells % 0.1 %
[2020-12-14 06:57] LABS: Eosinophils % (auto) 1.5 % (0.0-7.0); Hemoglobin 7.8 g/dL (12.2-16.2); Lymphocytes % (auto) 19.2 % (10.0-50.0); Mean Corpuscular Hemoglobin 26.8 pg (28.0-32.0); Mean Corpuscular Hgb Conc. 32.1 g/dL (32.0-36.0); Mean Corpuscular Volume 83.3 fL (80.0-100.0); Neutrophils % (auto) 70.6 % (37.0-80.0); Platelet Count (auto) 605 10^3/uL (140-450); Red Blood Cells 2.91 10^6/uL (4.0-5.20); Red Cell Distribution Width 18.1 % (11.8-14.3)
[2020-12-14 07:11] LABS: Albumin 2.4 g/dL (3.4-5.0); BUN/Creatinine Ratio 18.6; Calcium 8.3 mg/dL (8.5-10.1); Potassium 4.4 mmol/L (3.5-5.1)
[2020-12-14 07:13] LABS: Bilirubin, Total 0.4 mg/dL (0.2-1.0); Total Protein 6.9 g/dL (6.4-8.2)
[2020-12-14] MEDS: SODIUM CHLORIDE 0.9% 1,000 ML IV SCH ×2 (08:45→18:45)
[2020-12-14 09:00] VITALS: BP 124/38
[2020-12-14] MEDS: PANTOPRAZOLE 40 MG TAB PO SCH (09:49)
[2020-12-14] MEDS ORDERED: ERTAPENEM SOD INJ 0.5 GM in SODIUM CHL 0.9% 50 ML IV SCH (10:00)
[2020-12-14] MEDS ORDERED: LIDOCAINE 1% (LOCAL ANESTH.) PF 5ml SDV ID ONE (12:15)
[2020-12-14 13:00] VITALS: BP 142/44
[2020-12-14] MEDS ORDERED: LORazepam 0.5 MG TAB PO PRN (13:15)
[2020-12-14 16:15] VITALS: BP 125/86
[2020-12-14 16:40] VITALS: BP 149/45
[2020-12-14] MEDS ORDERED: SODIUM CHLOR 0.9% PF (SALINE LOCK) 10ML VIAL/SYR IV SCH (22:00)
== END 2020-12-14 19:00 | DRG 562 ==
LOC: EDBD 19:23 → ER 19:28 → OVERFLOW 12-13 05:24 → CENTRAL 12-13 09:02
PROVIDERS: ADMIT Nurse Practitioner; ATTEND Internal Medicine
PROC: 02HV33Z Insertion of Infusion Device into Superior Vena Cava, Percutaneous Approach (ICD-10-PCS; principal; 2020-12-14)
DX: S82.831A Other fracture of upper and lower end of right fibula, initial encounter for closed fracture (principal); N17.0 Acute kidney failure with tubular necrosis; E43 Unspecified severe protein-calorie malnutrition; N39.0 Urinary tract infection, site not specified; J96.11 Chronic respiratory failure with hypoxia; Z20.822 Contact with and (suspected) exposure to COVID-19; D64.9 Anemia, unspecified; H91.90 Unspecified hearing loss, unspecified ear; M19.90 Unspecified osteoarthritis, unspecified site; E11.22 Type 2 diabetes mellitus with diabetic chronic kidney disease; F41.9 Anxiety disorder, unspecified; I12.9 Hypertensive chronic kidney disease with stage 1 through stage 4 chronic kidney disease, or unspecified chronic kidney disease; D72.829 Elevated white blood cell count, unspecified; N18.2 Chronic kidney disease, stage 2 (mild); I25.10 Atherosclerotic heart disease of native coronary artery without angina pectoris; W18.39XA Other fall on same level, initial encounter; L89.90 Pressure ulcer of unspecified site, unspecified stage; Z83.3 Family history of diabetes mellitus; Z86.14 Personal history of Methicillin resistant Staphylococcus aureus infection; Z86.19 Personal history of other infectious and parasitic diseases; Z87.01 Personal history of pneumonia (recurrent); Z87.440 Personal history of urinary (tract) infections; Z86.16 Personal history of COVID-19; Y93.89 Activity, other specified; Y92.89 Other specified places as the place of occurrence of the external cause; Y99.8 Other external cause status
CPT/HCPCS: 29515; 36415; 51702; 70450; 71045; 72220; 73070; 73600; 76775; 80048; 80053; 80307; 80320; 81001; 82270; 82553; 82570; 82962; 84484; 85025; 85610; 85730; 86850; 86900; 86901; 87040; 87081; 87426; 93005; 96361; 96374; 96375; G0378; J0696; J1335; J1815; J2405